=== PATIENT | male | born 1990 | race Caucasian/White ===

== ENCOUNTER 2019-03-28 21:51 | Emergency (ER) | payer OTHER ==
[~2019-03-28] VITALS: Ht 167.6 cm; Wt 69.4 kg
[2019-03-28] MEDS ORDERED: LIDOCAINE-MPF 1%, 5ML ONE (22:01)
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
[2019-03-28 22:22] VITALS: BP 95/56
[2019-03-28] MEDS ORDERED: LIDOCAINE-MPF 1%, 5ML INFIL ONE (22:30)
--- NOTE | 2019-03-28 22:39 | NUR ---
Patient/Caregiver given discharge instructions and they have confirmed that they understand the instructions. Patient ambulatory with steady gait.
== END 2019-03-28 22:41 | disposition home or self-care (01) ==
LOC: ED 22:19
DX: S61.211A Laceration without foreign body of left index finger without damage to nail, initial encounter (principal); X58.XXXA Exposure to other specified factors, initial encounter; Y93.89 Activity, other specified; Y92.009 Unspecified place in unspecified non-institutional (private) residence as the place of occurrence of the external cause; Y99.8 Other external cause status
CPT/HCPCS: 12001; 99283